=== PATIENT | female | born 1990 | race Caucasian/White ===

== ENCOUNTER 2021-12-04 13:24 | Emergency (ER) | payer OTHER ==
[2021-12-04 15:11] LABS: BILIRUBIN NEGATIVE (NEGATIVE); BLOOD NEGATIVE Ery/uL (NEGATIVE); CLARITY CLEAR (CLEAR); COLOR YELLOW (YELLOW); GLUCOSE (U) NORMAL (NORMAL); LEUKOCYTES TRACE Leu/uL (NEGATIVE); NITRITE NEGATIVE (NEGATIVE); PROTEIN NEGATIVE (NEGATIVE); SPECIFIC GRAVITY 1.025 (1.001-1.030); UROBILINOGEN 0.2 mg/dL (0.2-1.0)
[2021-12-04 15:19] LABS: BACTERIA 2+
[2021-12-04 15:20] LABS: SQUAMOUS EPITHELIAL CELLS 20-50
[2021-12-04 15:34] LABS: BASOPHIL 0.8 % (0-2); HCT 46.1 % (37.0-47.0); HGB 14.7 g/dl (12.5-16.0); MCH 28.1 pg (25.0-31.0); MCHC 31.9 g/dL (32.0-36.0); MONOCYTE 4.7 % (0-12); MPV 9.4 fL (6.0-9.5); NEUTROPHIL 65.1 % (41-80); NRBC 0; PLT 341 K/uL (150-400); RBC 5.24 M/uL (4.20-5.40); RDW 13.3 % (11.5-14.0); WBC 9.9 K/uL (4.0-10.5)
[2021-12-04 16:03] LABS: BUN/CREAT RATIO (CALC) 15.8 RATIO; CREATININE 0.76 mg/dL (0.51-0.95); POTASSIUM 3.6 mmol/L (3.5-5.1)
[2021-12-04] MEDS ORDERED: MACROBID100 MG PO (17:52)
== END 2021-12-04 18:28 | disposition home or self-care (01) ==
LOC: FER 13:24
PROVIDERS: Nurse Practitioner Family
DX: O23.41 Unspecified infection of urinary tract in pregnancy, first trimester (principal); N39.0 Urinary tract infection, site not specified; O99.511 Diseases of the respiratory system complicating pregnancy, first trimester; J45.909 Unspecified asthma, uncomplicated; Z3A.01 Less than 8 weeks gestation of pregnancy; Z28.310 Unvaccinated for COVID-19
CPT/HCPCS: 36415; 76817; 80048; 81001; 84702; 85025; 86900; 86901; 87088; J7030